=== PATIENT | female | born 1985 | race Hispanic/Latino ===

== ENCOUNTER 2016-07-21 01:21 | Emergency (ER) | payer OTHER ==
[2016-07-21] MEDS ORDERED: predniSONE 20 MG TAB As Ordered ONE (02:18)
[2016-07-21] MEDS ORDERED: IPRATROPIUM 0.5MG/ALBUTEROL 2.5MG INH SOL UD 3ML (DUONEB)(J7620) As Ordered ONE (02:33)
[2016-07-21] MEDS ORDERED: ALBUTEROL SULFATE 2.5 MG/0.5 ML INH NEB SOLN As Ordered ONE (02:33)
--- NOTE | 2016-07-21 03:03 | EDDOCDS ---
Nurse's Notes [facility] Name: Aiden Marlow Age: 30 yrs Sex: Female : 1985 Arrival Date: 07/21/2016 Time: 01:21 Bed I3 / M3 Private MD: Diagnosis: Unspecified asthma with (acute) exacerbation Presentation: 07/21 01:24 Presenting complaint: Patient states: Patient reports feeling that her asthma is jmb flaring up. Patient reports that her Advair, Singulair, and neb doesn't seem to be helping her. Adult Sepsis Screening: The patient does not have new or worsening altered mentation. Patient's respiratory rate is less than 22. Systolic blood pressure is greater than 100. Patient has a qSOFA score of 0- Negative Sepsis Screen. Suicide/Homicide risk assessment- the patient denies having any suicidal and/or homicidal ideations and does not present with any other emotional, behavioral or mental health complaints. Status: Patient is not a nursing service director or dependent. Transition of care: patient was not received from another setting of care. 01:24 Acuity: DAMI Level 4 [facility] 01:24 Method Of Arrival: Walkin/Carried/Asstd [facility] Triage Assessment: 01:26 General: Appears in no apparent distress. Pain: Denies pain. HIV screening NA for this b visit Offered previously. Neurological: Level of Consciousness is awake, alert, obeys commands, Oriented to person, place, time. Respiratory: Airway is patent Respiratory effort is even, unlabored, Respiratory pattern is regular, symmetrical. GI: Abdomen is non- distended. Derm: Skin is pink, warm & dry. Musculoskeletal: Range of motion intact in all extremities. 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 Advair Diskus 500-50 mcg/dose Inhl dsdv 2. albuterol sulfate 90 mcg/actuation Inhl aepb 2 puffs every 4 hours 3. DuoNeb 0.5 mg-3 mg(2.5 mg base)/3 mL Inhl nebu 3 mL 4 times per day 4. Flonase 50 mcg/actuation Nasal spsn 2 sprays once daily 5. Singulair 10 mg Oral tab 1 tab once daily 6. Zyrtec 10 mg Oral tab 1 tab once daily - PMHx: Asthma; - PSHx: vaginal sling; - Social history: Smoking status: Patient uses tobacco products, heavy tobacco smoker. No barriers to communication noted, The patient speaks fluent Hungarian, Speaks appropriately for age. - Family history: Not pertinent. - : The pt / caregiver states he / she is not on anticoagulants. Home medication list is obtained from the patient. - Exposure Risk Screening:: None identified. Screenin:20 Screening information is obtained from the patient. Fall risk: No risks identified. af2 Assistance ADL's: requires no assistance with activities of daily living. Abuse/DV Screen: The patient / caregiver reports he/she is: not in a situation that causes fear, pain or injury. Nutritional screening: No deficits noted. Advance Directives: Currently, there is no health care proxy. home support is adequate. Assessment: 02:20 General: Appears in no apparent distress, comfortable, Behavior is appropriate for age, af2 cooperative. Neurological: Level of Consciousness is awake, alert, Oriented to person, place, time. Respiratory: Airway is patent Respiratory effort is even, unlabored, Respiratory pattern is regular, symmetrical, Breath sounds are coarse bilaterally. Breath sounds with wheezes bilaterally. Reports shortness of breath cough that is. 03:01 Reassessment: Patient appears in no apparent distress at this time. Patient states slm feeling better. Patient states symptoms have improved. Vital Signs: 01:26 BP 118 / 65; Pulse 77; Resp 20; Temp 97.6(O); Pulse Ox 94% on R/A; Weight 81.65 kg (R); [facility] Height 5 ft. 1 in. (154.94 cm) (R); 03:01 BP 124 / 67; Pulse 74; Resp 18; Pulse Ox 95% on R/A; Pain 0/10; slm 01:26 Body Mass Index 34.01 (81.65 kg, 154.94 cm) [facility] Vitals: 01:26 Log In Time: July 21, 2016 at 01:23. [facility] ED Course: 01:23 Patient visited by Shannan Reid, Reg. hs2 01:23 Patient moved to Waiting hs2 01:25 Triage Initiated [facility] 01:28 Patient moved to 3 / [facility] 01:36 Patient visited by Amie More RN. af2 01:58 Addison Booth PA is PHCP. mo1 01:58 Jignesh Rhodes DO is Attending Physician. mo1 02:14 Patient visited by Addison Booth PA. mo1 02:20 The patient / caregiver is instructed regarding the plan of care and ED course. Patient af2 has correct armband on for positive identification. Placed in gown. 02:20 No IV's were initiated during this patient's visit. No procedures done that require af2 assistance. 02:21 Patient visited by Amie More RN. af2 03:01 Berta Winkler LPN is Primary Nurse. slm Administered Medications: 02:19 Drug: predniSONE 60 mg [prednisone 20 mg tablet (3 tabs)] Route: PO; af2 02:36 Drug: Albuterol-Ipratropium 3 ml [ipratropium-albuterol 0.5 mg-3 mg(2.5 mg base)/3 mL jc3 nebulization soln (3 mL)] Route: Inhalation; 02:36 Drug: Albuterol 5 mg [albuterol sulfate 2.5 mg/0.5 mL solution for nebulization (1 mL)] jc3 Route: Nebulizer; RT: 02:37 Initial Med Neb Given as ordered. Oxygen is room air. Respiratory: Breath sounds are jc3 coarse bilaterally. Breath sounds with wheezes bilaterally. at expiration. Order Results: There are currently no results for this order. Outcome: 02:54 Discharge ordered by Provider. mo1 03:01 Discharge Assessment: Patient awake, alert and oriented x 3. No cognitive and/or slm functional deficits noted. Patient verbalized understanding of disposition instructions. patient administered narcotics - no. The following High Risk Discharge criteria are identified: None. Discharged to home ambulatory. Condition: good Condition: improved. Discharge instructions given to patient, Instructed on discharge instructions, follow up and referral plans. medication usage, Demonstrated understanding of instructions, medications, Pt was receptive of discharge instructions/ teaching. Prescriptions given X 3. No special radiology studies were completed. Property :Personal belongings accompany Pt. 03:02 Patient left the ED. slm Signatures: Warren Garcia jc3 Addison Booth PA PA mo1 Joe Guerin RN RN jmb McIntyre, Stephanie, LPN LPN slAmie Tran,RN RN af2 Shannan Reid, Reg Reg hs2 MTDD
--- NOTE | 2016-07-21 03:03 | EDDOCDS ---
Physician Documentation [facility] Name: Aiden Marlow Age: 30 yrs Sex: Female : 1985 Arrival Date: 07/21/2016 Time: 01:21 Bed I3 / M3 Private MD: Disposition: 07/21/16 02:54 Discharged to Home/Self Care. Impression: Unspecified asthma with (acute) exacerbation. - Condition is Stable. - Discharge Instructions: Asthma, Adult. - Prescriptions for Albuterol Sulfate 2.5 mg /3 mL (0.083 %) Inhalation Solution for Nebulization - inhale 1 unit by NEBULIZATION route 4 times per day As needed; 1 box. Prednisone 20 mg Oral Tablet - take 2 tablet by ORAL route once daily for 5 days; 10 tablet. Albuterol Sulfate 90 mcg/actuation Inhalation HFA Aerosol Inhaler - inhale 2 puff by INHALATION route every 4 hours As needed; 1 Inhaler. - Medication Reconciliation, Local Pharmacy Hours form. - Follow up: Private Physician; When: Call to arrange an appointment; Reason: Recheck today's complaints, Continuance of care. - Problem is an acute exacerbation. - Symptoms have improved. Historical: - Allergies: No known drug Allergies; - Home Meds: 1. Advair Diskus 500-50 mcg/dose Inhl dsdv 2. albuterol sulfate 90 mcg/actuation Inhl aepb 2 puffs every 4 hours 3. DuoNeb 0.5 mg-3 mg(2.5 mg base)/3 mL Inhl nebu 3 mL 4 times per day 4. Flonase 50 mcg/actuation Nasal spsn 2 sprays once daily 5. Singulair 10 mg Oral tab 1 tab once daily 6. Zyrtec 10 mg Oral tab 1 tab once daily - PMHx: Asthma; - PSHx: vaginal sling; - Social history: Smoking status: Patient uses tobacco products, heavy tobacco smoker. No barriers to communication noted, The patient speaks fluent Occitan, Speaks appropriately for age. - Family history: Not pertinent. - : The pt / caregiver states he / she is not on anticoagulants. Home medication list is obtained from the patient. - Exposure Risk Screening:: None identified. 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 1 in. (154.94 cm) (R); 03:01 BP 124 / 67; Pulse 74; Resp 18; Pulse Ox 95% on R/A; Pain 0/10; slm 01:26 Body Mass Index 34.01 (81.65 kg, 154.94 cm) jmbridger MDM: 01:59 Albuterol-Ipratropium 3 ml Inhalation once ordered. mo1 01:59 Albuterol 5 mg Nebulizer once ordered. mo1 02:00 Chest, 2 View (pa\E\lat) Ordered. EDMS 02:14 predniSONE 60 mg PO once; administer with food or milk ordered. mo1 Administered Medications: 02:19 Drug: predniSONE 60 mg [prednisone 20 mg tablet (3 tabs)] Route: PO; af2 02:36 Drug: Albuterol-Ipratropium 3 ml [ipratropium-albuterol 0.5 mg-3 mg(2.5 mg base)/3 mL jc3 nebulization soln (3 mL)] Route: Inhalation; 02:36 Drug: Albuterol 5 mg [albuterol sulfate 2.5 mg/0.5 mL solution for nebulization (1 mL)] jc3 Route: Nebulizer; Signatures: Dispatcher [employer] EDMS Addison Booth PA PA mo1 Joe Guerin RN RN Berta Burton LPN LPN slm Colello, Joseph jc3 Amie More RN af2 MTDD
--- NOTE | 2016-07-23 04:03 | EDDOCDS ---
Nurse's Notes [facility] Name: Aiden Marlow Age: 30 yrs Sex: Female : 1985 Arrival Date: 07/21/2016 Time: 01:21 Bed I3 / M3 Private MD: Diagnosis: Unspecified asthma with (acute) exacerbation Presentation: 07/21 01:24 Presenting complaint: Patient states: Patient reports feeling that her asthma is jmb flaring up. Patient reports that her Advair, Singulair, and neb doesn't seem to be helping her. Adult Sepsis Screening: The patient does not have new or worsening altered mentation. Patient's respiratory rate is less than 22. Systolic blood pressure is greater than 100. Patient has a qSOFA score of 0- Negative Sepsis Screen. Suicide/Homicide risk assessment- the patient denies having any suicidal and/or homicidal ideations and does not present with any other emotional, behavioral or mental health complaints. Status: Patient is not a director of cardiology service line or dependent. Transition of care: patient was not received from another setting of care. 01:24 Acuity: DAMI Level 4 [facility] 01:24 Method Of Arrival: Walkin/Carried/Asstd [facility] Triage Assessment: 01:26 General: Appears in no apparent distress. Pain: Denies pain. HIV screening NA for this b visit Offered previously. Neurological: Level of Consciousness is awake, alert, obeys commands, Oriented to person, place, time. Respiratory: Airway is patent Respiratory effort is even, unlabored, Respiratory pattern is regular, symmetrical. GI: Abdomen is non- distended. Derm: Skin is pink, warm & dry. Musculoskeletal: Range of motion intact in all extremities. 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 Advair Diskus 500-50 mcg/dose Inhl dsdv 2. albuterol sulfate 90 mcg/actuation Inhl aepb 2 puffs every 4 hours 3. DuoNeb 0.5 mg-3 mg(2.5 mg base)/3 mL Inhl nebu 3 mL 4 times per day 4. Flonase 50 mcg/actuation Nasal spsn 2 sprays once daily 5. Singulair 10 mg Oral tab 1 tab once daily 6. Zyrtec 10 mg Oral tab 1 tab once daily - PMHx: Asthma; - PSHx: vaginal sling; - Social history: Smoking status: Patient uses tobacco products, heavy tobacco smoker. No barriers to communication noted, The patient speaks fluent Mongolian, Speaks appropriately for age. - Family history: Not pertinent. - : The pt / caregiver states he / she is not on anticoagulants. Home medication list is obtained from the patient. - Exposure Risk Screening:: None identified. Screenin:20 Screening information is obtained from the patient. Fall risk: No risks identified. af2 Assistance ADL's: requires no assistance with activities of daily living. Abuse/DV Screen: The patient / caregiver reports he/she is: not in a situation that causes fear, pain or injury. Nutritional screening: No deficits noted. Advance Directives: Currently, there is no health care proxy. home support is adequate. Assessment: 02:20 General: Appears in no apparent distress, comfortable, Behavior is appropriate for age, af2 cooperative. Neurological: Level of Consciousness is awake, alert, Oriented to person, place, time. Respiratory: Airway is patent Respiratory effort is even, unlabored, Respiratory pattern is regular, symmetrical, Breath sounds are coarse bilaterally. Breath sounds with wheezes bilaterally. Reports shortness of breath cough that is. 03:01 Reassessment: Patient appears in no apparent distress at this time. Patient states slm feeling better. Patient states symptoms have improved. Vital Signs: 01:26 BP 118 / 65; Pulse 77; Resp 20; Temp 97.6(O); Pulse Ox 94% on R/A; Weight 81.65 kg (R); [facility] Height 5 ft. 1 in. (154.94 cm) (R); 03:01 BP 124 / 67; Pulse 74; Resp 18; Pulse Ox 95% on R/A; Pain 0/10; slm 01:26 Body Mass Index 34.01 (81.65 kg, 154.94 cm) [facility] Vitals: 01:26 Log In Time: July 21, 2016 at 01:23. [facility] ED Course: 01:23 Patient visited by Shannan Reid, Reg. hs2 01:23 Patient moved to Waiting hs2 01:25 Triage Initiated [facility] 01:28 Patient moved to 3 / [facility] 01:36 Patient visited by Amie More RN. af2 01:58 Addison Booth PA is PHCP. mo1 01:58 Jignesh Rhodes DO is Attending Physician. mo1 02:14 Patient visited by Addison Booth PA. mo1 02:20 The patient / caregiver is instructed regarding the plan of care and ED course. Patient af2 has correct armband on for positive identification. Placed in gown. 02:20 No IV's were initiated during this patient's visit. No procedures done that require af2 assistance. 02:21 Patient visited by Amie More RN. af2 03:01 Berta Winkler LPN is Primary Nurse. [facility] 03:57 [facility] Payment Agreement was scanned into [employer] and attached to record. pm4 09:02 T-Sheet-- Draft Copy was scanned into [employer] and attached to record. seh Administered Medications: 02:19 Drug: predniSONE 60 mg [prednisone 20 mg tablet (3 tabs)] Route: PO; af2 02:36 Drug: Albuterol-Ipratropium 3 ml [ipratropium-albuterol 0.5 mg-3 mg(2.5 mg base)/3 mL jc3 nebulization soln (3 mL)] Route: Inhalation; 02:36 Drug: Albuterol 5 mg [albuterol sulfate 2.5 mg/0.5 mL solution for nebulization (1 mL)] jc3 Route: Nebulizer; RT: 02:37 Initial Med Neb Given as ordered. Oxygen is room air. Respiratory: Breath sounds are jc3 coarse bilaterally. Breath sounds with wheezes bilaterally. at expiration. Order Results: There are currently no results for this order. Outcome: 02:54 Discharge ordered by Provider. mo1 03:01 Discharge Assessment: Patient awake, alert and oriented x 3. No cognitive and/or slm functional deficits noted. Patient verbalized understanding of disposition instructions. patient administered narcotics - no. The following High Risk Discharge criteria are identified: None. Discharged to home ambulatory. Condition: good Condition: improved. Discharge instructions given to patient, Instructed on discharge instructions, follow up and referral plans. medication usage, Demonstrated understanding of instructions, medications, Pt was receptive of discharge instructions/ teaching. Prescriptions given X 3. No special radiology studies were completed. Property :Personal belongings accompany Pt. 03:02 Patient left the ED. slm Signatures: Warren Garcia jc3 Addison Booth PA PA mo1 Joe Guerin,RN RN mellisab Berta Winkler LPN LPN slm Amie More RN RN af2 Shannan Reid, Reg Reg hs2 Ann, Aric Mojica, Reg Reg pm4 Chart Complete MTDD
--- NOTE | 2016-07-23 04:03 | EDDOCDS ---
Physician Documentation [facility] Name: Aiden Marlow Age: 30 yrs Sex: Female : 1985 Arrival Date: 07/21/2016 Time: 01:21 Bed I3 / M3 Private MD: Disposition: 07/21/16 02:54 Discharged to Home/Self Care. Impression: Unspecified asthma with (acute) exacerbation. - Condition is Stable. - Discharge Instructions: Asthma, Adult. - Prescriptions for Albuterol Sulfate 2.5 mg /3 mL (0.083 %) Inhalation Solution for Nebulization - inhale 1 unit by NEBULIZATION route 4 times per day As needed; 1 box. Prednisone 20 mg Oral Tablet - take 2 tablet by ORAL route once daily for 5 days; 10 tablet. Albuterol Sulfate 90 mcg/actuation Inhalation HFA Aerosol Inhaler - inhale 2 puff by INHALATION route every 4 hours As needed; 1 Inhaler. - Medication Reconciliation, Local Pharmacy Hours form. - Follow up: Private Physician; When: Call to arrange an appointment; Reason: Recheck today's complaints, Continuance of care. - Problem is an acute exacerbation. - Symptoms have improved. Historical: - Allergies: No known drug Allergies; - Home Meds: 1. Advair Diskus 500-50 mcg/dose Inhl dsdv 2. albuterol sulfate 90 mcg/actuation Inhl aepb 2 puffs every 4 hours 3. DuoNeb 0.5 mg-3 mg(2.5 mg base)/3 mL Inhl nebu 3 mL 4 times per day 4. Flonase 50 mcg/actuation Nasal spsn 2 sprays once daily 5. Singulair 10 mg Oral tab 1 tab once daily 6. Zyrtec 10 mg Oral tab 1 tab once daily - PMHx: Asthma; - PSHx: vaginal sling; - Social history: Smoking status: Patient uses tobacco products, heavy tobacco smoker. No barriers to communication noted, The patient speaks fluent Irish, Speaks appropriately for age. - Family history: Not pertinent. - : The pt / caregiver states he / she is not on anticoagulants. Home medication list is obtained from the patient. - Exposure Risk Screening:: None identified. 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 1 in. (154.94 cm) (R); 03:01 BP 124 / 67; Pulse 74; Resp 18; Pulse Ox 95% on R/A; Pain 0/10; slm 01:26 Body Mass Index 34.01 (81.65 kg, 154.94 cm) jmb MDM: 01:59 Albuterol-Ipratropium 3 ml Inhalation once ordered. mo1 01:59 Albuterol 5 mg Nebulizer once ordered. mo1 02:00 Chest, 2 View (pa\E\lat) Ordered. EDMS 02:14 predniSONE 60 mg PO once; administer with food or milk ordered. mo1 03:57 [facility] Payment Agreement was scanned into [employer] and attached to record. pm4 09:02 T-Sheet-- Draft Copy was scanned into [employer] and attached to record. seh Administered Medications: 02:19 Drug: predniSONE 60 mg [prednisone 20 mg tablet (3 tabs)] Route: PO; af2 02:36 Drug: Albuterol-Ipratropium 3 ml [ipratropium-albuterol 0.5 mg-3 mg(2.5 mg base)/3 mL jc3 nebulization soln (3 mL)] Route: Inhalation; 02:36 Drug: Albuterol 5 mg [albuterol sulfate 2.5 mg/0.5 mL solution for nebulization (1 mL)] jc3 Route: Nebulizer; Signatures: Dispatcher [employer] EDMS Addison Booth PA PA mo1 Joe Guerin RN RN Berta Burton LPN LPN slm Hoffert, Sarah seh Montondo, Paul, Reg Reg pm4 Warren Garcia jc3 Amie More RN af2 The chart was reviewed and I authenticate all verbal orders and agree with the evaluation and treatment provided.Attachments: 03:57 [facility] Payment Agreement pm4 09:02 T-Sheet-- Draft Copy [facility] Chart Complete MTDD
--- NOTE | 2016-07-23 04:03 | EDDOCDS ---
Physician Documentation [facility] Name: Aiden Marlow Age: 30 yrs Sex: Female : 1985 Arrival Date: 07/21/2016 Time: 01:21 Bed I3 / M3 Private MD: Disposition: 07/21/16 02:54 Discharged to Home/Self Care. Impression: Unspecified asthma with (acute) exacerbation. - Condition is Stable. - Discharge Instructions: Asthma, Adult. - Prescriptions for Albuterol Sulfate 2.5 mg /3 mL (0.083 %) Inhalation Solution for Nebulization - inhale 1 unit by NEBULIZATION route 4 times per day As needed; 1 box. Prednisone 20 mg Oral Tablet - take 2 tablet by ORAL route once daily for 5 days; 10 tablet. Albuterol Sulfate 90 mcg/actuation Inhalation HFA Aerosol Inhaler - inhale 2 puff by INHALATION route every 4 hours As needed; 1 Inhaler. - Medication Reconciliation, Local Pharmacy Hours form. - Follow up: Private Physician; When: Call to arrange an appointment; Reason: Recheck today's complaints, Continuance of care. - Problem is an acute exacerbation. - Symptoms have improved. Historical: - Allergies: No known drug Allergies; - Home Meds: 1. Advair Diskus 500-50 mcg/dose Inhl dsdv 2. albuterol sulfate 90 mcg/actuation Inhl aepb 2 puffs every 4 hours 3. DuoNeb 0.5 mg-3 mg(2.5 mg base)/3 mL Inhl nebu 3 mL 4 times per day 4. Flonase 50 mcg/actuation Nasal spsn 2 sprays once daily 5. Singulair 10 mg Oral tab 1 tab once daily 6. Zyrtec 10 mg Oral tab 1 tab once daily - PMHx: Asthma; - PSHx: vaginal sling; - Social history: Smoking status: Patient uses tobacco products, heavy tobacco smoker. No barriers to communication noted, The patient speaks fluent Portuguese, Speaks appropriately for age. - Family history: Not pertinent. - : The pt / caregiver states he / she is not on anticoagulants. Home medication list is obtained from the patient. - Exposure Risk Screening:: None identified. 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 1 in. (154.94 cm) (R); 03:01 BP 124 / 67; Pulse 74; Resp 18; Pulse Ox 95% on R/A; Pain 0/10; slm 01:26 Body Mass Index 34.01 (81.65 kg, 154.94 cm) jmb MDM: 01:59 Albuterol-Ipratropium 3 ml Inhalation once ordered. mo1 01:59 Albuterol 5 mg Nebulizer once ordered. mo1 02:00 Chest, 2 View (pa\E\lat) Ordered. EDMS 02:14 predniSONE 60 mg PO once; administer with food or milk ordered. mo1 03:57 [facility] Payment Agreement was scanned into [employer] and attached to record. pm4 09:02 T-Sheet-- Draft Copy was scanned into [employer] and attached to record. seh Administered Medications: 02:19 Drug: predniSONE 60 mg [prednisone 20 mg tablet (3 tabs)] Route: PO; af2 02:36 Drug: Albuterol-Ipratropium 3 ml [ipratropium-albuterol 0.5 mg-3 mg(2.5 mg base)/3 mL jc3 nebulization soln (3 mL)] Route: Inhalation; 02:36 Drug: Albuterol 5 mg [albuterol sulfate 2.5 mg/0.5 mL solution for nebulization (1 mL)] jc3 Route: Nebulizer; Signatures: Dispatcher [employer] EDMS Addison Booth PA PA mo1 Joe Guerin RN RN Berta Burton LPN LPN slm Hoffert, Sarah seh Montondo, Paul, Reg Reg pm4 Warren Garcia jc3 Amie More RN af2 The chart was reviewed and I authenticate all verbal orders and agree with the evaluation and treatment provided.Attachments: 03:57 [facility] Payment Agreement pm4 09:02 T-Sheet-- Draft Copy [facility] Chart Complete MTDD
== END 2016-07-21 03:02 | disposition home or self-care (01) ==
LOC: M ED 01:21
DX: J45.901 Unspecified asthma with (acute) exacerbation (principal); F17.200 Nicotine dependence, unspecified, uncomplicated; Z79.51 Long term (current) use of inhaled steroids; Z79.899 Other long term (current) drug therapy

== ENCOUNTER 2016-09-18 23:35 | Emergency (ER) | payer OTHER ==
[~2016-09-18] VITALS: Ht 154.9 cm; Wt 80.7 kg
[2016-09-19] MEDS ORDERED: MONT10TA2 (00:05)
[2016-09-19] MEDS ORDERED: ADV500INH (00:05)
[2016-09-19] MEDS ORDERED: OXYCODONE-ACETAMINOPHEN (00:05)
[2016-09-19] MEDS ORDERED: CETI10TA (00:05)
[2016-09-19] MEDS ORDERED: ALBUTEROL 90 MCG/ACT 8GM HFA INHALER INH ONE (00:30)
[2016-09-19] MEDS ORDERED: ALBUTEROL SULFATE 2.5 MG/0.5 ML INH NEB SOLN NEB ONE (00:30)
[2016-09-19] MEDS ORDERED: ALBU83IN INH (01:00)
[2016-09-19 01:11] VITALS: BP 121/69
== END 2016-09-19 01:13 | disposition home or self-care (01) ==
LOC: M ED 09-19 01:07
DX: J45.909 Unspecified asthma, uncomplicated (principal); K21.9 Gastro-esophageal reflux disease without esophagitis; F33.9 Major depressive disorder, recurrent, unspecified; Z79.899 Other long term (current) drug therapy; Z96.0 Presence of urogenital implants

== ENCOUNTER 2016-09-22 16:52 | Emergency (ER) | payer OTHER ==
[~2016-09-22] VITALS: Ht 152.4 cm; Wt 77.1 kg
[2016-09-22 16:52] VITALS: BP 110/72
[~2016-09-22 16:52] MED LIST: ADV500INH; ALBU83IN INH; CETI10TA; MONT10TA2; OXYCODONE-ACETAMINOPHEN
--- NOTE | 2016-09-22 18:07 | ED PDOC ---
Post-Departure Follow-Up patient LWBS Eileen Almaraz MD Sep 22, 2016 18:07
== END 2016-09-22 18:17 | disposition left against medical advice (07) ==
LOC: M ED 17:33
DX: K08.89 Other specified disorders of teeth and supporting structures (principal); Z53.21 Procedure and treatment not carried out due to patient leaving prior to being seen by health care provider

== ENCOUNTER 2016-11-03 04:29 | Emergency (ER) | payer OTHER ==
[~2016-11-03] VITALS: Ht 154.9 cm; Wt 77.1 kg
[2016-11-03] MEDS ORDERED: dexameTHASONE 20 MG/5 ML VIAL (J1100) IV ONE (05:00)
[2016-11-03] MEDS: IPRATROPIUM 0.5MG/ALBUTEROL 2.5MG INH SOL UD 3ML (DUONEB)(J7620) NEB SCH ×3 (05:13→05:15)
[2016-11-03] MEDS ORDERED: PRED20TA PO (05:32)
[2016-11-03] MEDS ORDERED: LEVALBUTEROL 1.25 MG/0.5 ML CONCENTRATE NEB INH ONE (05:45)
[2016-11-03] MEDS: LEVALBUTEROL 1.25 MG/0.5 ML CONCENTRATE NEB INH SCH ×2 (05:52→05:53)
[2016-11-03 06:56] VITALS: BP 134/62
--- NOTE | 2016-11-03 15:06 | REP ---
Chest two views HISTORY: Dyspnea Comparison: 05/20/2016 An increase in interstitial markings is present in the perihilar areas. The heart is normal in size. The pulmonary vasculature is normal in appearance. The bony structure is intact. IMPRESSION: Findings consistent with asthma or bronchitis. Signed by Logan Rodriguez MD 11/03/2016 07:55 A
== END 2016-11-03 06:58 | disposition home or self-care (01) ==
LOC: M ED 05:30
DX: J45.909 Unspecified asthma, uncomplicated (principal); F31.9 Bipolar disorder, unspecified; Z79.899 Other long term (current) drug therapy; F17.210 Nicotine dependence, cigarettes, uncomplicated
CPT/HCPCS: 71020; 94640; 96374; 99282; J1100

== ENCOUNTER 2016-12-29 09:20 | Emergency (ER) | payer OTHER ==
[~2016-12-29] VITALS: Ht 152.4 cm; Wt 71.7 kg
[~2016-12-29 09:20] MED LIST changes: +PRED20TA PO
[2016-12-29] MEDS ORDERED: IPRATROPIUM 0.5MG/ALBUTEROL 2.5MG INH SOL UD 3ML (DUONEB)(J7620) NEB ONE (10:15)
[2016-12-29] MEDS ORDERED: methylPREDNISolone INJ 125 MG/2 ML VIAL (J2930) IV ONE (10:15)
[2016-12-29] MEDS ORDERED: IPRASOL4 INH (11:19)
[2016-12-29] MEDS ORDERED: PRED20TA PO (11:19)
[2016-12-29 11:35] VITALS: BP 123/71
== END 2016-12-29 11:42 | disposition home or self-care (01) ==
LOC: M ED 11:00
DX: J45.901 Unspecified asthma with (acute) exacerbation (principal); F17.210 Nicotine dependence, cigarettes, uncomplicated
CPT/HCPCS: 94640; 96374; 99283; J2930

== ENCOUNTER 2017-07-25 23:52 | Emergency (ER) | payer OTHER ==
[2017-07-26] MEDS: predniSONE 20 MG TAB PO (01:24)
[2017-07-26] MEDS: IPRATROPIUM 0.5MG/ALBUTEROL 2.5MG INH SOL UD 3ML (DUONEB)(J7620) NEB (01:31)
[2017-07-26] MEDS: ALBUTEROL 90 MCG/ACT 8GM HFA INHALER INH (01:55)
== END 2017-07-26 02:02 | disposition home or self-care (01) ==
LOC: M ED 23:52
DX: J45.901 Unspecified asthma with (acute) exacerbation (principal); F31.9 Bipolar disorder, unspecified; F17.210 Nicotine dependence, cigarettes, uncomplicated; Z79.899 Other long term (current) drug therapy; Z98.890 Other specified postprocedural states
CPT/HCPCS: 94640

== ENCOUNTER → 2017-11-18 | Outpatient (REF) | payer OTHER ==
[2017-11-18 13:00] LABS: BASO # 0.1 10^3/uL (0.0-0.2); BASO % 0.8 % (0.0-1.0); EOS # 0.6 10^3/uL (0.0-0.50); HEMATOCRIT 39.4 % (36.0-47.0); HEMOGLOBIN 13.5 g/dl (12.0-15.5); IMMATURE GRANULOCYTE % 0.1 % (0-3.0); LYMPH # 2.2 10^3/uL (1.5-4.5); LYMPH % 28.7 % (24.0-44.0); MEAN CORPUSCULAR HEMOGLOBIN 29.8 pg (27.0-33.0); MEAN CORPUSCULAR HGB CONC 34.3 g/dl (32.0-36.5); MONO # 0.5 10^3/uL (0.0-0.8); MONO % 6.9 % (0.0-5.0); NEUTROPHILS # 4.2 10^3/uL (1.8-7.7); NEUTROPHILS % 55.5 % (36.0-66.0); PLATELET COUNT, AUTOMATED 319 10^3/uL (150-450); RED BLOOD COUNT 4.53 10^6/uL (4.00-5.40); RED CELL DISTRIBUTION WIDTH 12.6 % (11.5-14.5); WHITE BLOOD COUNT 7.5 10^3/uL (4.0-10.0)
[2017-11-18 14:07] LABS: IMMUNOGLOBULIN E 31.1 IU/ML (<100)
== END ==
LOC: M LAB REF 12:46
DX: J45.30 Mild persistent asthma, uncomplicated (principal)
CPT/HCPCS: 82785

== ENCOUNTER 2017-11-27 13:32 | Emergency (ER) | payer OTHER ==
[2017-11-27] MEDS: IPRATROPIUM 0.5MG/ALBUTEROL 2.5MG INH SOL UD 3ML (DUONEB)(J7620) NEB ×4 (17:51→20:31)
[2017-11-27 18:24] LABS: BASO # 0.1 10^3/uL (0.0-0.2); BASO % 0.4 % (0.0-1.0); EOS # 0.3 10^3/uL (0.0-0.50); EOS % 1.6 % (0.0-3.0); HEMATOCRIT 42.1 % (36.0-47.0); HEMOGLOBIN 14.7 g/dl (12.0-15.5); IMMATURE GRANULOCYTE % 0.5 % (0-3.0); LYMPH # 1.7 10^3/uL (1.5-4.5); LYMPH % 10.5 % (24.0-44.0); MEAN CORPUSCULAR HEMOGLOBIN 30.1 pg (27.0-33.0); MEAN CORPUSCULAR HGB CONC 34.9 g/dl (32.0-36.5); MEAN CORPUSCULAR VOLUME 86.1 fl (80.0-96.0); MONO % 6.2 % (0.0-5.0); NEUTROPHILS # 13.3 10^3/uL (1.8-7.7); NEUTROPHILS % 80.8 % (36.0-66.0); PLATELET COUNT, AUTOMATED 303 10^3/uL (150-450); RED BLOOD COUNT 4.89 10^6/uL (4.00-5.40); RED CELL DISTRIBUTION WIDTH 12.2 % (11.5-14.5); WHITE BLOOD COUNT 16.5 10^3/uL (4.0-10.0)
[2017-11-27 18:28] LABS: KETONE, URINE AUTO RFX 2+ mg/dL (NEGATIVE); LEUKOCYTE ESTERASE UR AUTO RFX TRACE (NEGATIVE); MUCUS, URINE RFX LARGE (NEGATIVE); NITRITE, URINE AUTO RFX NEGATIVE (NEGATIVE); RBC, URINE AUTO RFX 4 /HPF (0-3); SPECIFIC GRAVITY UR AUTO RFX 1.032 (1.002-1.035); SQUAM EPITHELIAL CELL UR AURFX 2 /HPF (0-6); WBC, URINE AUTO RFX 5 /HPF (0-3)
[2017-11-27 18:48] LABS: ALBUMIN/GLOBULIN RATIO 0.83 (1.00-1.93); ALKALINE PHOSPHATASE 83 U/L (45-117); ALT/SGPT 15 U/L (12-78); ANION GAP 9 MEQ/L (8-16); AST/SGOT 10 U/L (7-37); BILIRUBIN,DIRECT 0.3 MG/DL (0.0-0.2); BILIRUBIN,TOTAL 1.3 MG/DL (0.2-1.0); BLOOD UREA NITROGEN 9 MG/DL (7-18); CARBON DIOXIDE LEVEL 23 MEQ/L (21-32); CHLORIDE LEVEL 105 MEQ/L (98-107); CREATININE FOR GFR 0.85 MG/DL (0.55-1.30); GLOMERULAR FILTRATION RATE > 60.0 (>60); GLUCOSE, FASTING 89 MG/DL (70-100); POTASSIUM SERUM 3.4 MEQ/L (3.5-5.1); SODIUM LEVEL 137 MEQ/L (136-145); TOTAL PROTEIN 8.8 GM/DL (6.4-8.2)
[2017-11-27 18:55] LABS: INFLUENZA A AMPLIFICATION NEGATIVE (NEGATIVE); INFLUENZA B AMPLIFICATION NEGATIVE (NEGATIVE)
[2017-11-27] MEDS: methylPREDNISolone INJ 125 MG/2 ML VIAL (J2930) IV (19:21)
[2017-11-27] MEDS: KETOROLAC 30 MG/ML VIAL (J1885) IV (19:22)
[2017-11-27] MEDS: ONDANSETRON 4MG/2ML VIAL (J2405) IV (19:23)
[2017-11-27] MEDS: NS 1,000 ML IV (19:24)
[2017-11-27] MEDS: LevoFLOXacin IV 750 MG in APPROPRIATE DILUENT 1 EA IV (20:15)
== END 2017-11-27 23:44 | disposition home or self-care (01) ==
LOC: M ED 13:32
DX: J45.901 Unspecified asthma with (acute) exacerbation (principal); J18.9 Pneumonia, unspecified organism; N39.0 Urinary tract infection, site not specified; K80.20 Calculus of gallbladder without cholecystitis without obstruction; T83.32XA Displacement of intrauterine contraceptive device, initial encounter; K21.9 Gastro-esophageal reflux disease without esophagitis; F41.9 Anxiety disorder, unspecified; F33.9 Major depressive disorder, recurrent, unspecified; Z98.890 Other specified postprocedural states
CPT/HCPCS: J1956

== ENCOUNTER 2018-03-07 17:30 | Emergency (ER) | payer OTHER ==
[2018-03-07] MEDS: LISSAMINE GREEN OPHTH 1.5 MG STRIP OD (18:00)
[2018-03-07] MEDS: TETRACAINE 0.5% OPHTH SOLN 4ML OD (18:00)
[2018-03-07] MEDS: CIPROFLOXACIN 0.3% OPHTH SOLN 2.5ML OD (18:25)
== END 2018-03-07 18:46 | disposition home or self-care (01) ==
LOC: M ED 17:30
DX: H16.001 Unspecified corneal ulcer, right eye (principal); F17.210 Nicotine dependence, cigarettes, uncomplicated; Z79.899 Other long term (current) drug therapy
CPT/HCPCS: 99283

== ENCOUNTER 2018-05-12 19:55 | Emergency (ER) | payer OTHER ==
[2018-05-12] MEDS: IPRATROPIUM 0.5MG/ALBUTEROL 2.5MG INH SOL UD 3ML (DUONEB)(J7620) NEB ×2 (21:30→23:11)
[2018-05-12] MEDS: predniSONE 20 MG TAB PO (21:30)
[2018-05-12] MEDS: ALBUTEROL SULFATE 2.5 MG/0.5 ML INH NEB SOLN NEB (21:50)
== END 2018-05-12 23:13 | disposition home or self-care (01) ==
LOC: M ED 19:55
DX: J45.901 Unspecified asthma with (acute) exacerbation (principal); F31.9 Bipolar disorder, unspecified; K21.9 Gastro-esophageal reflux disease without esophagitis; Z97.5 Presence of (intrauterine) contraceptive device
CPT/HCPCS: 94640

== ENCOUNTER 2018-06-14 11:37 | Emergency (ER) | payer OTHER ==
[2018-06-14] MEDS: IPRATROPIUM 0.5MG/ALBUTEROL 2.5MG INH SOL UD 3ML (DUONEB)(J7620) NEB ×3 (12:08→12:27)
[2018-06-14] MEDS: dexameTHASONE 4 MG/ML 1ML VIAL (J1100) IM (12:48)
== END 2018-06-14 13:20 | disposition home or self-care (01) ==
LOC: M ED 11:37
DX: J45.901 Unspecified asthma with (acute) exacerbation (principal); K21.9 Gastro-esophageal reflux disease without esophagitis; F41.9 Anxiety disorder, unspecified; F32.9 Major depressive disorder, single episode, unspecified; F31.9 Bipolar disorder, unspecified; Z72.0 Tobacco use; Z79.899 Other long term (current) drug therapy
CPT/HCPCS: J1100

== ENCOUNTER 2018-08-22 15:18 | Emergency (ER) | payer OTHER ==
[~2018-08-22] VITALS: Ht 152.4 cm; Wt 85.0 kg
[~2018-08-22 15:18] MED LIST changes: -ADV500INH; +ADV500INH INH; +EXCETAB81 PO; +IPRA0.00 INH; +IPRA0.00 NEB; +LEVA750T7 PO; +LORA-243; +MIRE1IUD; +PRED10TA2 PO; +PROAAER10 INH; +RISP1SOL PO; +RISP2TAB3 PO; +SING10TA32 PO; +ZOFR4TAB14 PO
[2018-08-22] MEDS ORDERED: SPIR1CAP (15:24)
[2018-08-22] MEDS ORDERED: MIRE1IUD IU (15:25)
[2018-08-22] MEDS ORDERED: methylPREDNISolone INJ 125 MG/2 ML VIAL (J2930) IV ONE (15:45)
[2018-08-22 15:51] LABS: BASO # 0.1 10^3/uL (0.0-0.2); BASO % 0.7 % (0.0-1.0); EOS % 11.2 % (0.0-3.0); HEMATOCRIT 41.8 % (36.0-47.0); HEMOGLOBIN 14.1 g/dl (12.0-15.5); LYMPH # 2.2 10^3/uL (1.5-4.5); LYMPH % 26.2 % (24.0-44.0); MEAN CORPUSCULAR HEMOGLOBIN 29.9 pg (27.0-33.0); MEAN CORPUSCULAR HGB CONC 33.7 g/dl (32.0-36.5); MEAN CORPUSCULAR VOLUME 88.7 fl (80.0-96.0); MONO # 0.3 10^3/uL (0.0-0.8); MONO % 3.6 % (0.0-5.0); NEUTROPHILS # 4.9 10^3/uL (1.8-7.7); NEUTROPHILS % 57.9 % (36.0-66.0); PLATELET COUNT, AUTOMATED 284 10^3/uL (150-450); RED BLOOD COUNT 4.71 10^6/uL (4.00-5.40); WHITE BLOOD COUNT 8.5 10^3/uL (4.0-10.0)
--- NOTE | 2018-08-22 16:00 | REP ---
PA and lateral chest: Comparison is 06/14/2018. The lung flores are clear. The cardiac size is normal. The sissy, mediastinum, and skeletal structures are unremarkable. Impression: Negative PA and lateral chest. There is no interval change. Electronically Signed by Walter Moran MD 08/22/2018 03:52 P
[2018-08-22] MEDS: IPRATROPIUM 0.5MG/ALBUTEROL 2.5MG INH SOL UD 3ML (DUONEB)(J7620) NEB PRN ×3 (16:01→18:40)
[2018-08-22 16:22] LABS: INFLUENZA A AMPLIFICATION NEGATIVE (NEGATIVE); INFLUENZA B AMPLIFICATION NEGATIVE (NEGATIVE)
[2018-08-22 16:28] LABS: BLOOD UREA NITROGEN 10 MG/DL (7-18); CALCIUM LEVEL 8.7 MG/DL (8.5-10.1); CARBON DIOXIDE LEVEL 25 MEQ/L (21-32); CHLORIDE LEVEL 107 MEQ/L (98-107); GLOMERULAR FILTRATION RATE > 60.0 (>60); GLUCOSE, FASTING 122 MG/DL (70-100); POTASSIUM SERUM 3.8 MEQ/L (3.5-5.1); SODIUM LEVEL 140 MEQ/L (136-145)
[2018-08-22 18:30] VITALS: BP 111/58
--- NOTE | 2018-08-23 19:28 | ECGEPIP ---
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
== END 2018-08-22 20:00 | disposition left against medical advice (07) ==
LOC: M ED 15:18
DX: J45.901 Unspecified asthma with (acute) exacerbation (principal)
CPT/HCPCS: 71046; 80048; 84443; 85025; 87502; 93005; 93041; 94640; 94760; 96374; 99284; J2930

== ENCOUNTER 2018-08-27 14:46 | Emergency (ER) | payer OTHER ==
[~2018-08-27] VITALS: Ht 152.4 cm; Wt 85.0 kg
[~2018-08-27 14:46] MED LIST changes: +MIRE1IUD IU; +SPIR1CAP
[2018-08-27] MEDS ORDERED: predniSONE 20 MG TAB PO ONE (15:45)
[2018-08-27] MEDS ORDERED: IPRATROPIUM 0.5MG/ALBUTEROL 2.5MG INH SOL UD 3ML (DUONEB)(J7620) NEB ONE (15:45)
[2018-08-27] MEDS ORDERED: ALBUTEROL SULFATE 2.5 MG/0.5 ML INH NEB SOLN NEB ONE ×2 (16:45→17:00)
[2018-08-27 16:54] LABS: BLOOD UREA NITROGEN 9 MG/DL (7-18); CALCIUM LEVEL 8.6 MG/DL (8.5-10.1); CARBON DIOXIDE LEVEL 23 MEQ/L (21-32); CHLORIDE LEVEL 110 MEQ/L (98-107); CREATININE FOR GFR 0.76 MG/DL (0.55-1.30); GLOMERULAR FILTRATION RATE > 60.0 (>60); GLUCOSE, FASTING 84 MG/DL (70-100); POTASSIUM SERUM 3.9 MEQ/L (3.5-5.1); SODIUM LEVEL 140 MEQ/L (136-145)
[2018-08-27 16:57] LABS: BASO # 0.1 10^3/uL (0.0-0.2); BASO % 0.7 % (0.0-1.0); EOS # 1.1 10^3/uL (0.0-0.50); EOS % 11.9 % (0.0-3.0); HEMATOCRIT 40.7 % (36.0-47.0); HEMOGLOBIN 13.7 g/dl (12.0-15.5); LYMPH # 2.3 10^3/uL (1.5-4.5); LYMPH % 25.6 % (24.0-44.0); MEAN CORPUSCULAR HEMOGLOBIN 29.8 pg (27.0-33.0); MEAN CORPUSCULAR HGB CONC 33.7 g/dl (32.0-36.5); MEAN CORPUSCULAR VOLUME 88.5 fl (80.0-96.0); MONO # 0.4 10^3/uL (0.0-0.8); MONO % 3.9 % (0.0-5.0); NEUTROPHILS # 5.2 10^3/uL (1.8-7.7); NEUTROPHILS % 57.7 % (36.0-66.0); PLATELET COUNT, AUTOMATED 326 10^3/uL (150-450)
[2018-08-27 17:01] LABS: ABG BASE EXCESS -4.8 (-2.0-2.0); ABG HCO3 20.3 MEQ/L (22.0-26.0); ABG O2 SATURATION 96.7 % (95.0-99.0); ABG PARTIAL PRESSURE CO2 37.8 mmHg (35.0-45.0); ABG PARTIAL PRESSURE O2 89.3 mmHg (75.0-100.0); ABG STANDARD HCO3 20.5 MEQ/L (22.0-26.0); ABG TOTAL CO2 21.4 MEQ/L (22.0-29.0); ABG pH (ARTERIAL) 7.347 UNITS (7.350-7.450)
--- NOTE | 2018-08-27 18:02 | REP ---
CHEST PA AND LATERAL: 08/27/2018. Comparison: 08/22/2018, 06/14/2018. Clinical history: Dyspnea. Findings: The two-views show the lung flores well inflated. There is flattening of the diaphragms on the lateral view and some perihilar peribronchial thickening that may reflect reactive airway disease or bronchitis. No infiltrate or effusion. The heart, mediastinal and hilar contours are normal. The aorta and airway intact. Bony thorax unremarkable. Impression: 1. Perihilar peribronchial thickening and some streaky densities suggesting a bronchitis or reactive airway disease. No dense consolidation, effusion or other acute finding. Electronically Signed by Damaso Melgoza MD 08/27/2018 09:29 P
[2018-08-27] MEDS ORDERED: IPRA0.00 INH (18:11)
[2018-08-27] MEDS ORDERED: PRED20TA PO (21:03)
[2018-08-27 21:13] VITALS: BP 122/53
== END 2018-08-27 21:27 | disposition home or self-care (01) ==
LOC: M ED 14:46 → UNDOADMIN 20:19 → M ED INP 20:19 → UNDODISIN 21:26
DX: J45.901 Unspecified asthma with (acute) exacerbation (principal); F31.9 Bipolar disorder, unspecified; Z79.51 Long term (current) use of inhaled steroids; Z97.5 Presence of (intrauterine) contraceptive device; Z79.899 Other long term (current) drug therapy

== ENCOUNTER 2018-12-12 20:38 | Emergency (ER) | payer OTHER ==
[~2018-12-12] VITALS: Ht 152.4 cm; Wt 81.8 kg
[2018-12-12 20:38] VITALS: BP 120/82
== END 2018-12-12 22:20 | disposition left against medical advice (07) ==
LOC: M ED 20:38
DX: Z53.29 Procedure and treatment not carried out because of patient's decision for other reasons (principal)

== ENCOUNTER 2019-02-17 20:39 | Emergency (ER) | payer OTHER ==
[~2019-02-17] VITALS: Ht 152.4 cm; Wt 82.5 kg
[2019-02-17] MEDS ORDERED: methylPREDNISolone INJ 125 MG/2 ML VIAL (J2930) IV ONE (21:30)
[2019-02-17 21:41] LABS: BASO # 0.1 10^3/uL (0.0-0.2); BASO % 0.7 % (0.0-1.0); EOS % 9.3 % (0.0-3.0); HEMATOCRIT 40.6 % (36.0-47.0); HEMOGLOBIN 13.9 g/dl (12.0-15.5); LYMPH # 2.1 10^3/uL (1.5-4.5); MEAN CORPUSCULAR HEMOGLOBIN 30.6 pg (27.0-33.0); MEAN CORPUSCULAR HGB CONC 34.2 g/dl (32.0-36.5); MEAN CORPUSCULAR VOLUME 89.4 fl (80.0-96.0); MONO # 0.5 10^3/uL (0.0-0.8); MONO % 4.8 % (0.0-5.0); NEUTROPHILS # 6.9 10^3/uL (1.8-7.7); NEUTROPHILS % 64.7 % (36.0-66.0); PLATELET COUNT, AUTOMATED 257 10^3/uL (150-450); RED BLOOD COUNT 4.54 10^6/uL (4.00-5.40); WHITE BLOOD COUNT 10.7 10^3/uL (4.0-10.0)
[2019-02-17 22:00] LABS: BLOOD UREA NITROGEN 6 MG/DL (7-18); CALCIUM LEVEL 9.1 MG/DL (8.5-10.1); CARBON DIOXIDE LEVEL 27 MEQ/L (21-32); CHLORIDE LEVEL 108 MEQ/L (98-107); CREATININE FOR GFR 0.76 MG/DL (0.55-1.30); GLOMERULAR FILTRATION RATE > 60.0 (>60); GLUCOSE, FASTING 104 MG/DL (70-100); POTASSIUM SERUM 3.5 MEQ/L (3.5-5.1); SODIUM LEVEL 140 MEQ/L (136-145)
[2019-02-17 22:03] LABS: HCG, SERUM QUALITATIVE NEGATIVE (NEGATIVE)
[2019-02-17] MEDS: IPRATROPIUM 0.5MG/ALBUTEROL 2.5MG INH SOL UD 3ML (DUONEB)(J7620) NEB PRN ×2 (22:47→23:08)
[2019-02-17] MEDS ORDERED: PSEU120T19 PO (23:33)
[2019-02-17] MEDS ORDERED: PRED20TA PO (23:33)
[2019-02-17] MEDS ORDERED: ZITHTAB PO (23:33)
[2019-02-17] MEDS ORDERED: FLON1SPR NARES (23:33)
[2019-02-17 23:41] VITALS: BP 125/60
== END 2019-02-17 23:56 | disposition home or self-care (01) ==
LOC: M ED 20:39
DX: J45.901 Unspecified asthma with (acute) exacerbation (principal); J06.9 Acute upper respiratory infection, unspecified; Z97.5 Presence of (intrauterine) contraceptive device
CPT/HCPCS: 80048; 84703; 85025; 96374; 99284; J2930

== ENCOUNTER 2019-06-12 22:56 | Emergency (ER) | payer OTHER ==
[~2019-06-12] VITALS: Ht 154.9 cm; Wt 82.7 kg
[~2019-06-12 22:56] MED LIST changes: +FLON1SPR NARES; +PSEU120T19 PO; +ZITHTAB PO
[2019-06-12] MEDS ORDERED: methylPREDNISolone INJ 125 MG/2 ML VIAL (J2930) IV ONE (23:30)
[2019-06-12] MEDS ORDERED: ALBUTEROL SULFATE 2.5 MG/0.5 ML INH NEB SOLN NEB ONE (23:30)
[2019-06-13] MEDS ORDERED: ALLE180T33 PO (00:04)
[2019-06-13 00:10] LABS: BASO % 0.4 % (0.0-1.0); EOS # 0.2 10^3/uL (0.0-0.5); EOS % 1.4 % (0.0-3.0); HEMATOCRIT 39.2 % (36.0-47.0); HEMOGLOBIN 13.1 g/dl (12.0-15.5); LYMPH # 2.1 10^3/uL (1.5-5.0); LYMPH % 19.4 % (24.0-44.0); MEAN CORPUSCULAR HEMOGLOBIN 30.2 pg (27.0-33.0); MEAN CORPUSCULAR HGB CONC 33.4 g/dl (32.0-36.5); MEAN CORPUSCULAR VOLUME 90.3 fl (80.0-96.0); MONO # 0.7 10^3/uL (0.0-0.8); NEUTROPHILS # 7.8 10^3/uL (1.5-8.5); NEUTROPHILS % 72.3 % (36.0-66.0); PLATELET COUNT, AUTOMATED 288 10^3/uL (150-450); RED BLOOD COUNT 4.34 10^6/uL (4.00-5.40); WHITE BLOOD COUNT 10.8 10^3/uL (4.0-10.0)
[2019-06-13 00:21] LABS: BLOOD UREA NITROGEN 9 MG/DL (7-18); CALCIUM LEVEL 8.6 MG/DL (8.5-10.1); CARBON DIOXIDE LEVEL 26 MEQ/L (21-32); CHLORIDE LEVEL 107 MEQ/L (98-107); CREATININE FOR GFR 0.82 MG/DL (0.55-1.30); GLOMERULAR FILTRATION RATE > 60.0 (>60); GLUCOSE, FASTING 87 MG/DL (70-100); POTASSIUM SERUM 3.3 MEQ/L (3.5-5.1); SODIUM LEVEL 140 MEQ/L (136-145)
[2019-06-13 00:25] LABS: INFLUENZA A AMPLIFICATION NEGATIVE (NEGATIVE); INFLUENZA B AMPLIFICATION NEGATIVE (NEGATIVE)
[2019-06-13] MEDS ORDERED: AZIT-12 PO (00:57)
[2019-06-13] MEDS ORDERED: AZITHROMYCIN 250 MG TAB PO ONE (01:00)
[2019-06-13 01:08] VITALS: BP 136/61
--- NOTE | 2019-06-13 10:26 | REP ---
CHEST PA AND LATERAL: 06/12/2019. COMPARISON: 08/27/2018, 08/22/2018. CLINICAL HISTORY: Cough, dyspnea, wheezing. FINDINGS: Lung flores are mildly hyperinflated with some flattening of the diaphragms. There is peribronchial thickening in the perihilar regions and some streaky densities. I do not see dense consolidation with air bronchograms or pleural effusion. No lateral pleural thickening or apical scarring. No pneumothorax. The heart is not enlarged. The aorta and airway are intact. Bony thorax shows no focal lesion or compression deformity. IMPRESSION: 1. Perihilar changes of bronchitis or reactive airway disease. Bronchiectatic changes in the bases are not excluded, but no dense consolidation or pleural effusion. 2. No cardiomegaly or edema. Electronically Signed by Damaso Melgoza MD 06/13/2019 07:47 P
== END 2019-06-13 01:10 | disposition home or self-care (01) ==
LOC: M ED 22:56
DX: J45.901 Unspecified asthma with (acute) exacerbation (principal); F33.9 Major depressive disorder, recurrent, unspecified; K21.9 Gastro-esophageal reflux disease without esophagitis; Z79.899 Other long term (current) drug therapy; Z97.5 Presence of (intrauterine) contraceptive device
CPT/HCPCS: 71046; 80048; 85025; 87502; 94640; 96374; 99284; J2930

== ENCOUNTER 2019-08-08 03:42 | Emergency (ER) | payer OTHER ==
[~2019-08-08] VITALS: Ht 152.4 cm; Wt 82.7 kg
[~2019-08-08 03:42] MED LIST changes: +ALLE180T33 PO; +AZIT-12 PO
[2019-08-08 04:52] LABS: INFLUENZA A AMPLIFICATION NEGATIVE (NEGATIVE); INFLUENZA B AMPLIFICATION NEGATIVE (NEGATIVE)
[2019-08-08] MEDS ORDERED: predniSONE 20 MG TAB PO ONE (06:00)
[2019-08-08] MEDS: IPRATROPIUM 0.5MG/ALBUTEROL 2.5MG INH SOL UD 3ML (DUONEB)(J7620) NEB PRN ×3 (06:01→06:16)
[2019-08-08] MEDS ORDERED: PRED20TA PO ×2 (06:34→06:36)
[2019-08-08 06:47] VITALS: BP 135/72
--- NOTE | 2019-08-08 07:38 | REP ---
PA and lateral chest: Comparison is 06/12/2019. The lung flores are clear. The cardiac size is normal. The sissy, mediastinum, and skeletal structures are unremarkable. Impression: Negative PA and lateral chest. Electronically Signed by Walter Moran MD 08/08/2019 07:29 A
== END 2019-08-08 06:49 | disposition home or self-care (01) ==
LOC: M ED 03:42
DX: J45.901 Unspecified asthma with (acute) exacerbation (principal); Z97.5 Presence of (intrauterine) contraceptive device

== ENCOUNTER 2019-10-23 21:29 | Emergency (ER) | payer OTHER ==
[~2019-10-23] VITALS: Ht 152.4 cm; Wt 88.2 kg
[~2019-10-23 21:29] MED LIST changes: -MONT10TA2; +MONT10TA4
[2019-10-23] MEDS ORDERED: MONT10TA4 (21:36)
[2019-10-23] MEDS ORDERED: ALBU8.5H (21:36)
[2019-10-23] MEDS ORDERED: ALBUTEROL 90 MCG/ACT 8GM HFA INHALER INH ONE (22:00)
[2019-10-23] MEDS ORDERED: predniSONE 20 MG TAB PO ONE (22:00)
[2019-10-23] MEDS ORDERED: PRED20TA PO (22:57)
[2019-10-23 23:07] VITALS: BP 113/58
--- NOTE | 2019-10-24 10:22 | REP ---
Portable chest x-ray: Single view. History: Dyspnea and cough. Comparison chest x-ray: August 08, 2019. Findings: The lungs are well inflated and clear. The pleural angles are sharp. Cardio-mediastinal silhouette is unremarkable. No bony abnormality is seen. Pulmonary vasculature is not increased. Impression: No active disease. Electronically Signed by Jakob Livingston MD 10/24/2019 10:14 A
== END 2019-10-23 23:09 | disposition home or self-care (01) ==
LOC: M ED 21:29
DX: J45.901 Unspecified asthma with (acute) exacerbation (principal); K21.9 Gastro-esophageal reflux disease without esophagitis; F31.9 Bipolar disorder, unspecified; F41.9 Anxiety disorder, unspecified; Z72.0 Tobacco use; Z97.5 Presence of (intrauterine) contraceptive device; Z79.51 Long term (current) use of inhaled steroids

== ENCOUNTER 2020-03-03 21:04 | Emergency (ER) | payer OTHER ==
[~2020-03-03] VITALS: Ht 152.4 cm; Wt 89.0 kg
[~2020-03-03 21:04] MED LIST changes: +ALBU8.5H
[2020-03-03] MEDS ORDERED: IPRATROPIUM 0.5MG/ALBUTEROL 2.5MG INH SOL UD 3ML (DUONEB) NEB ONE (23:15)
[2020-03-03] MEDS ORDERED: methylPREDNISolone 125MG 2ML VIAL IV ONE (23:15)
--- NOTE | 2020-03-04 00:11 | REPVR ---
PROCEDURE INFORMATION: Exam: XR Chest, 2 Views Exam date and time: 03/03/2020 11:02 PM Age: 34 years old Clinical indication: Other: Wheezing, nasal congestion TECHNIQUE: Imaging protocol: XR of the chest Views: 2 views. COMPARISON: SD PORTABLE CHEST X-RAY 10/23/2019 10:00 PM FINDINGS: Lungs: Unremarkable. No consolidation. Pleural space: Unremarkable. No pleural effusion. No pneumothorax. Heart/Mediastinum: Unremarkable. No cardiomegaly. Bones/joints: Unremarkable. IMPRESSION: No acute infiltrates. Electronically signed by: Chidi Schuler On 03/04/2020 00:10:53 AM
[2020-03-04 00:27] LABS: BASO % 0.5 % (0.0-1.0); EOS # 0.8 10^3/uL (0.0-0.5); EOS % 9.6 % (0.0-3.0); HEMATOCRIT 36.5 % (36.0-47.0); HEMOGLOBIN 12.6 g/dl (12.0-15.5); LYMPH # 2.6 10^3/uL (1.5-5.0); LYMPH % 30.3 % (24.0-44.0); MEAN CORPUSCULAR HEMOGLOBIN 30.5 pg (27.0-33.0); MEAN CORPUSCULAR HGB CONC 34.5 g/dl (32.0-36.5); MEAN CORPUSCULAR VOLUME 88.4 fl (80.0-96.0); MONO # 0.6 10^3/uL (0.0-0.8); MONO % 7.1 % (0.0-5.0); NEUTROPHILS # 4.5 10^3/uL (1.5-8.5); NEUTROPHILS % 52.3 % (36.0-66.0); PLATELET COUNT, AUTOMATED 282 10^3/uL (150-450); RED BLOOD COUNT 4.13 10^6/uL (4.00-5.40); WHITE BLOOD COUNT 8.6 10^3/uL (4.0-10.0)
[2020-03-04] MEDS ORDERED: PRED20TA PO (00:56)
[2020-03-04] MEDS ORDERED: PSEU120T19 PO (00:56)
[2020-03-04] MEDS ORDERED: FLON1SPR NARES (00:56)
[2020-03-04 01:00] VITALS: BP 122/70
== END 2020-03-04 01:06 | disposition home or self-care (01) ==
LOC: M ED 21:04
DX: J45.901 Unspecified asthma with (acute) exacerbation (principal); J06.9 Acute upper respiratory infection, unspecified; K21.9 Gastro-esophageal reflux disease without esophagitis; Z79.899 Other long term (current) drug therapy; Z97.5 Presence of (intrauterine) contraceptive device
CPT/HCPCS: 71046; 85025; 94640; 96374; 99284; J2930

== ENCOUNTER 2020-04-17 11:00 | Emergency (ER) | payer OTHER ==
[~2020-04-17] VITALS: Ht 152.4 cm; Wt 87.9 kg
[2020-04-17] MEDS ORDERED: IPRA0.00 NEB (12:07)
[2020-04-17 12:15] VITALS: BP 115/77
== END 2020-04-17 12:19 | disposition home or self-care (01) ==
LOC: M ED 11:00
DX: Z76.0 Encounter for issue of repeat prescription (principal); J45.909 Unspecified asthma, uncomplicated; F17.200 Nicotine dependence, unspecified, uncomplicated

== ENCOUNTER 2020-04-28 14:08 | Emergency (ER) | payer OTHER ==
[~2020-04-28] VITALS: Ht 152.4 cm; Wt 87.8 kg
[2020-04-28] MEDS ORDERED: PSEU1TAB3 (14:19)
[2020-04-28] MEDS ORDERED: MONT10TA4 (14:19)
[2020-04-28] MEDS ORDERED: NS 1,000 ML IV ONE (14:45)
[2020-04-28 16:35] LABS: BASO # 0.1 10^3/uL (0.0-0.2); BASO % 0.5 % (0.0-1.0); EOS # 0.6 10^3/uL (0.0-0.5); EOS % 6.7 % (0.0-3.0); HEMOGLOBIN 12.7 g/dl (12.0-15.5); LYMPH # 1.9 10^3/uL (1.5-5.0); LYMPH % 19.9 % (24.0-44.0); MEAN CORPUSCULAR HGB CONC 32.6 g/dl (32.0-36.5); MONO # 0.6 10^3/uL (0.0-0.8); MONO % 6.2 % (0.0-5.0); NEUTROPHILS # 6.3 10^3/uL (1.5-8.5); NEUTROPHILS % 66.3 % (36.0-66.0); PLATELET COUNT, AUTOMATED 259 10^3/uL (150-450); RED BLOOD COUNT 4.38 10^6/uL (4.00-5.40); WHITE BLOOD COUNT 9.6 10^3/uL (4.0-10.0)
[2020-04-28] MEDS ORDERED: ISOVUE-370 76% 100ML VIAL As Ordered ONE (16:54)
[2020-04-28 17:14] LABS: THYROID STIMULATING HORMONE 0.751 uIU/ML (0.358-3.740); THYROXINE (T4) 6.3 UG/DL (4.5-12.0)
--- NOTE | 2020-04-28 17:26 | REPVR ---
PROCEDURE INFORMATION: Exam: CT Neck With Contrast Exam date and time: 04/28/2020 4:56 PM Age: 34 years old Clinical indication: Neck pain; Additional info: Pain, swelling right base of the neck TECHNIQUE: Imaging protocol: Computed tomography images of the neck with intravenous contrast. Radiation optimization: All CT scans at this facility use at least one of these dose optimization techniques: automated exposure control; mA and/or kV adjustment per patient size (includes targeted exams where dose is matched to clinical indication); or iterative reconstruction. Contrast material: ISOVUE 370; Contrast volume: 75 ml; Contrast route: INTRAVENOUS (IV); COMPARISON: No relevant prior studies available. FINDINGS: Paranasal sinuses: Pansinusitis is present. Nasopharynx: Unremarkable. Oropharynx: Unremarkable. No significant tonsillar enlargement. Hypopharynx: Unremarkable. Larynx: Unremarkable. Normal epiglottis. Retropharyngeal space: Unremarkable. Submandibular/Parotid glands: Normal. Glands are normal in size. Thyroid: There is a 2 cm hypodense nodule within the right thyroid. A follow-up thyroid ultrasound is recommended. Lymph nodes: Multiple small non-specific bilateral cervical chain lymph nodes are present. Trachea: Visualized trachea is unremarkable. Lungs: There are multiple small non-specific pulmonary nodules in the right upper lobe.For patients at low risk (minimal or absent history of smoking and of other known risk factors), no routine follow-up is indicated. For patients at high risk (history of smoking or of other known risk factors), consider optional CT Chest at 12 months. (Reference: Cristopher). Minor bronchiectasis may also be present in the lung apices. Esophagus: There is nonspecific thickening of the proximal esophagus. An ill-defined inflammatory process is noted to the right of the esophagus, extending into the mediastinum. Several small lymph nodes are also noted in this area. Infectious or neoplastic etiologies are possible. A contained esophageal perforation or tear/leak is not excluded. Bones/joints: No acute fracture. There is reversal of the normal cervical lordosis. Soft tissues: Unremarkable. No significant soft tissue swelling. IMPRESSION: 1. There is nonspecific thickening of the proximal esophagus. An ill-defined inflammatory process is noted to the right of the esophagus, extending into the mediastinum. Several small lymph nodes are also noted in this area. Infectious or neoplastic etiologies are possible. A contained esophageal perforation or tear/leak is not excluded. 2. Small nonspecific pulmonary nodules. Follow-up is recommended. 3. Nonspecific 2 cm right thyroid nodule. A follow-up thyroid ultrasound is recommended. 4. Pansinusitis COMMENTS: Consistent with the [employer]'s Incidental Findings Committee white paper (J Am Cuate Radiol 2015): In patients under 35 years old with an incidental thyroid nodule equal to or greater than [address], MRI or extrathyroidal US, further evaluation with dedicated thyroid US is recommended for patients with normal life expectancy and without comorbidities. For smaller nodules without suspicious features, no further evaluation or follow up is recommended. Electronically signed by: Joe Espinal On 04/28/2020 17:26:08 PM
--- NOTE | 2020-04-28 17:56 | REPVR ---
PROCEDURE INFORMATION: Exam: CT Chest Without Contrast Exam date and time: 04/28/2020 5:37 PM Age: 34 years old Clinical indication: Abnormal findings; Abnormal radiologic exam of lung or chest; Other: Swelling in neck; Additional info: Swelling in neck/chest abnormal neck CT TECHNIQUE: Imaging protocol: Computed tomography of the chest without contrast. 3D rendering (Not supervised by radiologist): MIP and/or 3D reconstructed images were created by the technologist. Radiation optimization: All CT scans at this facility use at least one of these dose optimization techniques: automated exposure control; mA and/or kV adjustment per patient size (includes targeted exams where dose is matched to clinical indication); or iterative reconstruction. COMPARISON: CR Chest, 2 view PA, Lat 03/03/2020 11:02 PM FINDINGS: Thyroid: There is a 2 cm hypodense nodule within the right thyroid. A follow-up thyroid ultrasound is recommended. Lungs: There are numerous tree-in-bud opacities and tiny pulmonary nodules scattered throughout both lungs, most pronounced in the right upper and bilateral lower lobes. Endobronchial spread of infection is most likely. Mild bronchial wall thickening is noted within both lungs. Pleural space: Unremarkable. No pneumothorax. No pleural effusion. Heart: Unremarkable. No cardiomegaly. No pericardial effusion. Esophagus: There is nonspecific thickening of the proximal esophagus. An ill-defined inflammatory process is noted to the right of the esophagus, extending into the mediastinum. Several small lymph nodes are also noted in this area. Infectious or neoplastic etiologies are possible. A contained esophageal perforation or tear/leak is not excluded. Mediastinal space: Incidental note is made of a small hiatal hernia. Aorta: Unremarkable. No aortic aneurysm. Lymph nodes: Multiple small non-specific mediastinal lymph nodes are present. Small axillary nodes are also present. Bones/joints: Unremarkable. No acute fracture. Soft tissues: Unremarkable. IMPRESSION: 1. There is nonspecific thickening of the proximal esophagus. An ill-defined inflammatory process is noted to the right of the esophagus, extending into the mediastinum. Several small lymph nodes are also noted in this area. Infectious or neoplastic etiologies are possible. A contained esophageal perforation or tear/leak is not excluded. 2. Nonspecific 2 cm right thyroid nodule. A follow-up thyroid ultrasound is recommended. 3. Numerous tree-in-bud opacities and tiny pulmonary nodules scattered throughout both lungs, most pronounced in the right upper and bilateral lower lobes. Endobronchial spread of infection is most likely. COMMENTS: Consistent with the [employer]'s Incidental Findings Committee white paper (J Am Cuate Radiol 2015): In patients under 35 years old with an incidental thyroid nodule equal to or greater than [address], MRI or extrathyroidal US, further evaluation with dedicated thyroid US is recommended for patients with normal life expectancy and without comorbidities. For smaller nodules without suspicious features, no further evaluation or follow up is recommended. Electronically signed by: Joe Espinal On 04/28/2020 17:56:11 PM
[2020-04-28 19:57] VITALS: BP 117/72
--- NOTE | 2020-04-30 10:06 | ED PDOC ---
Post-Departure Follow-Up lisette remy faxed formal report of ct chest for fu Jerel Andrews MD Apr 30, 2020 10:06
== END 2020-04-28 19:59 | disposition home or self-care (01) ==
LOC: M ED 14:08
DX: E04.1 Nontoxic single thyroid nodule (principal); R22.1 Localized swelling, mass and lump, neck; R91.8 Other nonspecific abnormal finding of lung field; F17.200 Nicotine dependence, unspecified, uncomplicated
CPT/HCPCS: 70491; 71250; 80047; 84436; 84443; 84479; 84702; 85025; 87486; 87581; 87633; 87798; 96360; 96361; 99284; Q9967

== ENCOUNTER 2020-06-22 20:49 | Emergency (ER) | payer OTHER ==
[~2020-06-22] VITALS: Ht 152.4 cm; Wt 90.4 kg
[~2020-06-22 20:49] MED LIST changes: -MONT10TA4; +MONT5TAB2; +PSEU1TAB3; +RISP-9 PO; -RISP2TAB3 PO
[2020-06-22] MEDS ORDERED: methylPREDNISolone 125MG 2ML VIAL IV ONE (21:15)
[2020-06-22 21:33] LABS: BASO # 0.1 10^3/uL (0.0-0.2); BASO % 0.8 % (0.0-1.0); EOS # 0.6 10^3/uL (0.0-0.5); EOS % 7.9 % (0.0-3.0); HEMATOCRIT 37.8 % (36.0-47.0); HEMOGLOBIN 12.3 g/dl (12.0-15.5); LYMPH # 1.9 10^3/uL (1.5-5.0); LYMPH % 24.2 % (24.0-44.0); MEAN CORPUSCULAR HEMOGLOBIN 28.8 pg (27.0-33.0); MEAN CORPUSCULAR HGB CONC 32.5 g/dl (32.0-36.5); MEAN CORPUSCULAR VOLUME 88.5 fl (80.0-96.0); MONO # 0.5 10^3/uL (0.0-0.8); MONO % 6.3 % (0.0-5.0); NEUTROPHILS # 4.7 10^3/uL (1.5-8.5); NEUTROPHILS % 60.5 % (36.0-66.0); PLATELET COUNT, AUTOMATED 295 10^3/uL (150-450); RED BLOOD COUNT 4.27 10^6/uL (4.00-5.40); WHITE BLOOD COUNT 7.7 10^3/uL (4.0-10.0)
[2020-06-22 21:37] LABS: URINE PREG TEST NEGATIVE (NEGATIVE)
[2020-06-22 22:00] LABS: ALBUMIN 3.5 GM/DL (3.2-5.2); ALT/SGPT 30 U/L (12-78); BILIRUBIN,DIRECT 0.1 MG/DL (0.0-0.2); BILIRUBIN,TOTAL 0.4 MG/DL (0.2-1.0); BLOOD UREA NITROGEN 9 MG/DL (7-18); CALCIUM LEVEL 8.4 MG/DL (8.5-10.1); CARBON DIOXIDE LEVEL 26 MEQ/L (21-32); CHLORIDE LEVEL 109 MEQ/L (98-107); CK-MB VALUE MASS 3.8 NG/ML (<3.6); CPK CREATINE PHOSPHOKINASE 515 U/L (26-192); CREATININE FOR GFR 0.69 MG/DL (0.55-1.30); GLOMERULAR FILTRATION RATE > 60.0 (>60); GLUCOSE, FASTING 84 MG/DL (70-100); MB/CK RELATIVE INDEX 0.74 (< OR =4); NT-PRO BNP 27 PG/ML (<125); POTASSIUM SERUM 3.5 MEQ/L (3.5-5.1); SODIUM LEVEL 139 MEQ/L (136-145); TROPONIN I < 0.02 NG/ML (< 0.10)
--- NOTE | 2020-06-22 22:22 | REPVR ---
PROCEDURE INFORMATION: Exam: XR Chest, 2 Views Exam date and time: 06/22/2020 9:52 PM Age: 34 years old Clinical indication: Other: Dyspnea; Additional info: Dyspnea/cough TECHNIQUE: Imaging protocol: XR of the chest Views: 2 views. COMPARISON: CT Chest without contrast 2020-04-28 17:33 FINDINGS: Lungs: Bronchiectasis and mild bronchial wall thickening. Pleural space: Unremarkable. No pleural effusion. No pneumothorax. Heart/Mediastinum: Unremarkable. No cardiomegaly. Bones/joints: Unremarkable. IMPRESSION: Bronchiectasis and mild bronchial wall thickening. Electronically signed by: Saman Torres On 06/22/2020 22:22:52 PM
[2020-06-22] MEDS ORDERED: NITROFURANTOIN (MACROBID) 100 MG CAP PO ONE (22:45)
[2020-06-22] MEDS: IPRATROPIUM 0.5MG/ALBUTEROL 2.5MG INH SOL UD 3ML (DUONEB) NEB PRN ×2 (23:13→23:48)
[2020-06-22] MEDS ORDERED: MACR100C43 PO (23:44)
[2020-06-22] MEDS ORDERED: VENTAER INH (23:45)
[2020-06-23 00:30] VITALS: BP 101/51
[2020-06-23] MEDS ORDERED: PRED20TA PO (12:09)
--- NOTE | 2020-06-23 13:34 | ECGEPIP ---
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
== END 2020-06-23 00:41 | disposition home or self-care (01) ==
LOC: M ED 20:49
DX: J45.901 Unspecified asthma with (acute) exacerbation (principal); N39.0 Urinary tract infection, site not specified; Z97.5 Presence of (intrauterine) contraceptive device; F17.210 Nicotine dependence, cigarettes, uncomplicated
CPT/HCPCS: 71046; 80048; 80076; 81001; 82550; 82553; 83880; 84484; 84703; 85025; 87088; 87186; 93005; 93041; 94640; 94760; 96374; 99285; J2930

== ENCOUNTER 2020-09-28 22:44 | Emergency (ER) | payer OTHER ==
[~2020-09-28] VITALS: Ht 152.4 cm; Wt 92.3 kg
[~2020-09-28 22:44] MED LIST changes: +MACR100C43 PO; +MONT10TA10; -MONT5TAB2; +VENTAER INH
[2020-09-28] MEDS ORDERED: ELID1CRE11 (23:01)
[2020-09-28] MEDS ORDERED: ZYRTTAB8 PO (23:01)
[2020-09-28] MEDS ORDERED: PROAAER10 (23:01)
[2020-09-29] MEDS ORDERED: predniSONE 20 MG TAB PO ONE ×2 (00:50→02:35)
[2020-09-29] MEDS ORDERED: IPRATROPIUM 0.5MG/ALBUTEROL 2.5MG INH SOL UD 3ML (DUONEB) NEB ONE (00:50)
[2020-09-29 01:15] VITALS: BP 145/82
[2020-09-29] MEDS ORDERED: IPRA0.00 INH (02:38)
[2020-09-29] MEDS ORDERED: PRED20TA PO (02:39)
== END 2020-09-29 02:56 | disposition home or self-care (01) ==
LOC: M ED 22:44
DX: J45.901 Unspecified asthma with (acute) exacerbation (principal); F17.210 Nicotine dependence, cigarettes, uncomplicated; Z79.899 Other long term (current) drug therapy; Z97.5 Presence of (intrauterine) contraceptive device

== ENCOUNTER 2020-11-28 00:06 | Emergency (ER) | payer OTHER ==
[~2020-11-28] VITALS: Ht 152.4 cm; Wt 93.7 kg
[~2020-11-28 00:06] MED LIST changes: +ELID1CRE11; +PROAAER10; +ZYRTTAB8 PO
[2020-11-28] MEDS ORDERED: SING10TA32 PO (00:14)
[2020-11-28] MEDS ORDERED: ALBUTEROL 90 MCG/ACT 8GM HFA INHALER INH ONE (01:20)
[2020-11-28] MEDS ORDERED: methylPREDNISolone 125MG 2ML VIAL IV ONE (01:20)
[2020-11-28 02:02] LABS: BASO # 0.1 10^3/uL (0.0-0.2); EOS # 0.9 10^3/uL (0.0-0.5); EOS % 12.4 % (0.0-3.0); HEMATOCRIT 39.8 % (36.0-47.0); HEMOGLOBIN 13.2 g/dl (12.0-15.5); LYMPH # 2.4 10^3/uL (1.5-5.0); LYMPH % 32.7 % (24.0-44.0); MEAN CORPUSCULAR HEMOGLOBIN 29.3 pg (27.0-33.0); MEAN CORPUSCULAR HGB CONC 33.2 g/dl (32.0-36.5); MEAN CORPUSCULAR VOLUME 88.2 fl (80.0-96.0); MONO # 0.4 10^3/uL (0.0-0.8); MONO % 5.2 % (2.0-8.0); NEUTROPHILS # 3.6 10^3/uL (1.5-8.5); NEUTROPHILS % 48.4 % (36.0-66.0); PLATELET COUNT, AUTOMATED 316 10^3/uL (150-450); RED BLOOD COUNT 4.51 10^6/uL (4.00-5.40); WHITE BLOOD COUNT 7.3 10^3/uL (4.0-10.0)
[2020-11-28] MEDS ORDERED: PRED20TA PO (02:44)
[2020-11-28 02:59] VITALS: BP 125/58
--- NOTE | 2020-11-28 03:03 | REPVR ---
PROCEDURE INFORMATION: Exam: XR Chest Exam date and time: 11/28/2020 2:22 AM Age: 35 years old Clinical indication: Cough and wheezing; Additional info: Sob/wheezing TECHNIQUE: Imaging protocol: XR of the chest. Views: 2 views. COMPARISON: CR Chest, 2 view PA, Lat 06/22/2020 9:47 PM FINDINGS: Lungs: Unremarkable. No consolidation. Pleural spaces: Unremarkable. No pleural effusion. No pneumothorax. Heart/Mediastinum: Unremarkable. No cardiomegaly. Bones/joints: Unremarkable. IMPRESSION: No acute infiltrates. Electronically signed by: Chidi Schuler On 11/28/2020 03:03:25 AM
== END 2020-11-28 03:01 | disposition home or self-care (01) ==
LOC: M ED 00:06
DX: J45.901 Unspecified asthma with (acute) exacerbation (principal); K21.9 Gastro-esophageal reflux disease without esophagitis; F31.9 Bipolar disorder, unspecified; F41.9 Anxiety disorder, unspecified; Z79.51 Long term (current) use of inhaled steroids; Z79.899 Other long term (current) drug therapy
CPT/HCPCS: 71046; 80047; 84702; 85025; 94640; 96374; 99284; J2930